=== PATIENT | male | born 1955 | race Caucasian/White ===

== ENCOUNTER 2017-06-27 20:24 | Observation (INO) | payer OTHER, SELFPAY ==
[~2017-06-27] VITALS: Ht 162.6 cm; Wt 66.5 kg
[~2017-06-27 20:24] MED LIST: ACET325 PO; ALBU3IS INH; ALBU90I INH; ALBU90OI INH; ALBUIS INH; ALLO100; ALLO100 PO; AMIO200 PO; ARIP20 PO; ASCO500 PO; ASPI325 PO; ASPI81CH PO; ASPI81EC PO; ATOR10 PO; ATOR40TA PO; Antivert12.5 MG PO; B-1100 MG PO; BENZ1 PO; BENZ2 PO; BENZATROPINE PO; BUSP10 PO; BUSP15 PO; CEPH500 PO; CLON.5 PO; CLON1 PO; CLON2 PO; CLOP75 PO; CLOT10 SS; COLCRYS0.6 MG PO; CYCL10 PO; Cartia Xt120 MG PO; DEPO TESTOSTERONE; DIGO.125 PO; DILT120 PO; DIPH50 PO; DIVA500EC PO; DIVA500ER; DIVA500ER PO; DOCU100 PO; DOXE50 PO; DOXY100 PO; DULERA 100 MCG/13 GM INH; Depo-Testos200 MG/ML IM; Desyrel50 MG PO; ERGO50000 PO; ESCI20 PO; FAMO10 PO; FENO54 PO; FLUSAL2505 IH; FLUSAL2505 INH; FOLI1 PO; FURO40 PO; FURO80 PO; Furosemide40 MG PO; GUAI600T33 PO; HALO5 PO; HYDACE10 PO; HYDACE5 PO; HYDCHL12.5 PO; HYDPAM50 PO; HYDR1TAB94 PO; HYDROCHLOROTHIAZIDE; HYDROCODON-ACE1 EAC3 PO; Haldol 5 mg Tab5 MG PO; IBUP600 PO; IBUP800 PO; ISOMON60ER PO; Isosorbide Mono30 MG PO; LANOXIN250 MC1 PO; LEVO750 PO; LEVSOD150 PO; LEVSOD175 PO; LIDO4TS50 TOP; LIDO5TP; LIDO5TP TOP; LISI20 PO; LISI5 PO; LORA.5 PO; LORA2 PO; MECL12.5 PO; MECL25 PO; METO50 PO; METO50ER PO; MULVITB PO; MUPI1NAS; NAPR375 PO; NAPR500 PO; NITR.4SL SL; NITR.6SL SL; NITRSPRAY SL; OMEP20ER PO; OXYACE5T PO; OXYC10TA19 PO; Omeprazole20 M1 PO; PANT40 PO; POTA10T PO; POTCHL20ER PO; PRAV20 PO; PRAV40 PO; PRED10 PO; PRED1SU OD; PRED1SU OU; PRED20 PO; PROM25 PO; Percocet 5-3251 EACH PO; Prilosec20 MG PO; Prinivil10 MG PO; RANI150 PO; RISP2 PO; SENN187 PO; SILSUL1TC TOP; SULTRIDS PO; SULTRISS PO; Synthroid/Lev0.15 MG PO; TAMS.4ER PO; TESTTP IM; TESTTP TOP; TIOT18 INH; TRAM50 PO; TRAZ100 PO; TRAZ150T57 PO; TRAZ50 PO; VENTOLIN; VICODIN 5-3001 EACH PO; Vitamin B-1250 MCG PO; Vitamin B-150 MG PO; XARELTO20 MG PO; ZIPR20 PO; ZIPR40 PO; ZIPR80 PO; ZOLP10 PO; Zithromax250 MG PO; [UNRECOGNIZED DRUG - OTHER]; [UNRECOGNIZED DRUG - OTHER] IM; [UNRECOGNIZED DRUG - REMARK]
[2017-06-27 21:57] LABS: BASOPHILS ABSOLUTE AUTO 0.03 K/mm3 (0.00-0.23); BASOPHILS PERCENT AUTO 0 % (0-2); EOSINOPHILS ABSOLUTE AUTO 0.11 K/mm3 (0.00-0.68); EOSINOPHILS PERCENT AUTO 1 % (0-6); Hematocrit 41.2 % (37.0-53.0); Hemoglobin 14.1 g/dL (13.5-17.5); IMMATURE GRAN ABSOLUTE AUTO 0.03 K/mm3 (0.00-0.10); IMMATURE GRAN PERCENT AUTO 0 % (0-1); LYMPHOCYTES ABSOLUTE AUTO 1.82 K/mm3 (0.84-5.20); LYMPHOCYTES PERCENT AUTO 22 % (21-46); MONOCYTES ABSOLUTE AUTO 0.82 K/mm3 (0.16-1.47); MONOCYTES PERCENT AUTO 10 % (4-13); Mean Corpuscular HGB 32.9 pg (26.0-34.0); Mean Corpuscular HGB Conc 34.2 g/dL (31.5-36.5); Mean Corpuscular Volume 96 fL (80-100); Mean Platelet Volume 9.5 fL (9.1-12.4); NEUTROPHILS ABSOLUTE AUTO 5.56 K/mm3 (1.96-9.15); NEUTROPHILS PERCENT AUTO 66 % (41-73); Platelet Count 202 K/mm3 (150-400); RDW Coefficient Variation 12.3 % (11.7-14.2); RDW Standard Deviation 43.5 fL (35.1-46.3); Red Blood Cell Count 4.29 M/mm3 (4.30-5.90); White Blood Cell Count 8.37 K/mm3 (4.00-11.30)
[2017-06-27 22:20] LABS: Alanine Aminotransfer (ALT/SGP 32 U/L (12-78); Albumin/Globulin Ratio 0.8 (0.8-1.8); Alk Phos 96 U/L (50-136); Anion Gap 5 mmol/L (6-16); Aspartate Aminotrans (AST/SGOT 43 U/L (12-37); Bilirubin, Total 0.2 mg/dL (0.1-1.0); Blood Urea Nitrogen 9 mg/dL (8-24); CO2, Blood 29 mmol/L (21-32); Calcium, Blood 8.8 mg/dL (8.5-10.1); Chloride, Blood 105 mmol/L (98-108); Globulin, Blood 3.6 g/dL (2.2-4.0); Glomerular Filtration Rate >60 (60-); Glucose, Blood 85 mg/dL (70-99); Potassium, Blood 3.6 mmol/L (3.5-5.5); Sodium, Blood 139 mmol/L (136-145); Total Protein, Blood 6.6 g/dL (6.4-8.2); Troponin I 0.017 ng/mL (0.000-0.040)
[2017-06-27 22:24] LABS: Thyroid Stimulating Hormone 0.579 uIU/mL (0.360-4.800)
[2017-06-27 23:40] LABS: Valproic Acid 61.8 ug/mL (50.0-100.0)
[2017-06-27 23:48] LABS: Digoxin (Lanoxin) <0.06 ug/mL (0.80-2.00)
[2017-06-30] MEDS ORDERED: DOCU100 PO (13:39)
[2017-06-30] MEDS ORDERED: MECL12.5 PO (13:39)
[2018-01-15] MEDS ORDERED: TRAZ50 (13:33)
[2018-01-15] MEDS ORDERED: LORA.5 (13:33)
[2018-01-20] MEDS ORDERED: LORA.5 PO (09:04)
[2018-01-20] MEDS ORDERED: TRAZ50 PO (09:04)
[2018-01-20] MEDS ORDERED: OXYB5ER PO (09:07)
[2018-01-20] MEDS ORDERED: DOXE25 PO (09:08)
[2018-01-20] MEDS ORDERED: LEVSOD100 PO (09:09)
[2018-02-24] MEDS ORDERED: LEVFLO500 PO (12:01)
[2018-02-24] MEDS ORDERED: PRED20 PO (12:02)
[2018-02-25] MEDS ORDERED: ACET325 PO (09:47)
[2018-02-25] MEDS ORDERED: METO25 PO (09:48)
[2018-02-25] MEDS ORDERED: ATOR40TA PO (09:48)
[2018-02-25] MEDS ORDERED: ASPI81CH PO (09:48)
[2018-02-25] MEDS ORDERED: OXYB5ER PO (09:49)
== END 2017-06-30 14:57 ==
LOC: ER 20:24 → MEDS 20:25 → ER 23:32 → MEDS 06-28 00:02
PROVIDERS: Emergency Medicine
DX: R29.6 Repeated falls (principal); G40.909 Epilepsy, unspecified, not intractable, without status epilepticus; F25.9 Schizoaffective disorder, unspecified; E03.9 Hypothyroidism, unspecified; I25.10 Atherosclerotic heart disease of native coronary artery without angina pectoris; J44.9 Chronic obstructive pulmonary disease, unspecified; H81.10 Benign paroxysmal vertigo, unspecified ear; I48.2 Chronic atrial fibrillation; M10.9 Gout, unspecified; F64.9 Gender identity disorder, unspecified; Z87.820 Personal history of traumatic brain injury; Z98.890 Other specified postprocedural states; Z88.5 Allergy status to narcotic agent; Z88.8 Allergy status to other drugs, medicaments and biological substances
CPT/HCPCS: 36415; 70450; 71046; 80053; 80162; 80164; 83880; 84443; 84484; 85025; 93005; 93010; 96360; 96361; 97116; 97161; 97165; 97535; 99285; G0378; G8978; G8979; G8987; G8988; J7030

== ENCOUNTER 2017-10-09 14:41 | Emergency (ER) | payer OTHER, SELFPAY ==
[~2017-10-09] VITALS: Ht 160 cm; Wt 61.2 kg
[2017-10-09 15:53] LABS: BASOPHILS ABSOLUTE AUTO 0.01 K/mm3 (0.00-0.23); BASOPHILS PERCENT AUTO 0 % (0-2); EOSINOPHILS ABSOLUTE AUTO 0.03 K/mm3 (0.00-0.68); EOSINOPHILS PERCENT AUTO 1 % (0-6); Hematocrit 40.8 % (37.0-53.0); Hemoglobin 13.7 g/dL (13.5-17.5); IMMATURE GRAN ABSOLUTE AUTO 0.01 K/mm3 (0.00-0.10); IMMATURE GRAN PERCENT AUTO 0 % (0-1); LYMPHOCYTES ABSOLUTE AUTO 0.94 K/mm3 (0.84-5.20); LYMPHOCYTES PERCENT AUTO 17 % (21-46); MONOCYTES PERCENT AUTO 11 % (4-13); Mean Corpuscular HGB 32.6 pg (26.0-34.0); Mean Corpuscular HGB Conc 33.6 g/dL (31.5-36.5); Mean Corpuscular Volume 97 fL (80-100); Mean Platelet Volume 9.5 fL (9.1-12.4); NEUTROPHILS ABSOLUTE AUTO 4.07 K/mm3 (1.96-9.15); NEUTROPHILS PERCENT AUTO 72 % (41-73); Platelet Count 193 K/mm3 (150-400); RDW Coefficient Variation 13.1 % (11.7-14.2); RDW Standard Deviation 46.7 fL (35.1-46.3); White Blood Cell Count 5.66 K/mm3 (4.00-11.30)
[2017-10-09 16:12] LABS: Alanine Aminotransfer (ALT/SGP 26 U/L (12-78); Albumin/Globulin Ratio 0.8 (0.8-1.8); Alk Phos 96 U/L (50-136); Anion Gap 8 mmol/L (6-16); Aspartate Aminotrans (AST/SGOT 45 U/L (12-37); Bilirubin, Total 0.4 mg/dL (0.1-1.0); Blood Urea Nitrogen 13 mg/dL (8-24); Bun/Creatinine Ratio 14.4 (12.0-20.0); CO2, Blood 27 mmol/L (21-32); Calcium, Blood 8.8 mg/dL (8.5-10.1); Chloride, Blood 107 mmol/L (98-108); Globulin, Blood 3.6 g/dL (2.2-4.0); Glomerular Filtration Rate >60 (60-); Glucose, Blood 76 mg/dL (70-99); Potassium, Blood 3.6 mmol/L (3.5-5.5); Sodium, Blood 142 mmol/L (136-145); Total Protein, Blood 6.6 g/dL (6.4-8.2)
[2017-10-09 17:00] LABS: Troponin I <0.015 ng/mL (0.000-0.040)
== END 2017-10-09 18:04 | disposition home or self-care (01) ==
LOC: ER 14:41
PROVIDERS: Emergency Medicine
DX: S00.83XA Contusion of other part of head, initial encounter (principal); R29.6 Repeated falls; W01.198A Fall on same level from slipping, tripping and stumbling with subsequent striking against other object, initial encounter; Z88.8 Allergy status to other drugs, medicaments and biological substances; Z88.5 Allergy status to narcotic agent; Z88.0 Allergy status to penicillin; Z88.1 Allergy status to other antibiotic agents; Z79.899 Other long term (current) drug therapy; I50.9 Heart failure, unspecified; I48.91 Unspecified atrial fibrillation; F17.200 Nicotine dependence, unspecified, uncomplicated
CPT/HCPCS: 36415; 70450; 71046; 80053; 84484; 85025; 93005; 93010; 99284

== ENCOUNTER 2017-10-09 18:42 | Observation (INO) | payer OTHER, SELFPAY ==
[~2017-10-09] VITALS: Ht 162.6 cm; Wt 67.0 kg
[2017-10-09 23:28] LABS: Digoxin (Lanoxin) <0.06 ug/mL (0.80-2.00)
[2017-10-10 18:52] LABS: Source, Urine Clean Catch
[2017-10-10 18:56] LABS: Bilirubin, Urine Neg (Neg); Blood, Urine 1+ (Neg); Glucose Qualitative, Urine Neg (Neg); Ketones, Urine Neg (Neg); Leukocyte Esterase, Urine Neg (Neg); Nitrite, Urine Neg (Neg); Protein, Urine Neg (Neg); Specific Gravity, Urine 1.015 (1.003-1.022); Urobilinogen, Urine 1+ (Normal); pH, Urine 6.5 (5.0-8.0)
[2017-10-10 19:20] LABS: Appearance, Urine Clear (Clear); Color, Urine Yellow (P-Yellow); Red Blood Cells, Urine Not Seen /hpf (0-2); Squamous Epithelial Cells Not Seen /hpf (Few); White Blood Cells, Urine Not Seen /hpf (0-5)
[2017-10-10 19:21] LABS: Bacteria Not Seen /hpf
[2017-10-10 19:32] LABS: U Amphetamine Screen Not Detected; U Barbituate Screen Not Detected; U Benzodiazapine Screen DETECTED; U Buprenorphine Screen Not Detected; U Cannabinoids Screen DETECTED; U Cocaine Screen Not Detected; U Methadone Screen Not Detected; U Methamphetamine Screen Not Detected; U Opiates Screen Not Detected; U Oxycodone Screen Not Detected; U Phencyclidine Screen Not Detected; U Propoxyphene Screen Not Detected
== END 2017-10-11 13:36 | disposition home or self-care (01) ==
LOC: ER 18:42 → MEDS 18:43 → ENPENDDIS 10-11 09:38 → MEDS 10-11 13:36
PROVIDERS: Emergency Medicine; Internal Medicine
DX: G21.19 Other drug induced secondary parkinsonism (principal); G40.909 Epilepsy, unspecified, not intractable, without status epilepticus; I48.91 Unspecified atrial fibrillation; E03.9 Hypothyroidism, unspecified; F25.9 Schizoaffective disorder, unspecified; I25.10 Atherosclerotic heart disease of native coronary artery without angina pectoris; J44.9 Chronic obstructive pulmonary disease, unspecified; Z88.0 Allergy status to penicillin; Z88.1 Allergy status to other antibiotic agents; Z88.5 Allergy status to narcotic agent; Z88.8 Allergy status to other drugs, medicaments and biological substances; Z79.899 Other long term (current) drug therapy; Z99.81 Dependence on supplemental oxygen
CPT/HCPCS: 36415; 70496; 70498; 80162; 81001; 87081; 97110; 97116; 97162; 97166; 97530; 97535; 99285; G0378; G8978; G8979; G8987; G8988; J7030; Q9967

== ENCOUNTER 2017-11-09 21:55 | Emergency (ER) | payer OTHER, SELFPAY ==
[~2017-11-09] VITALS: Ht 162.6 cm; Wt 63.5 kg
== END 2017-11-09 23:30 | disposition home or self-care (01) ==
LOC: ER 21:55
DX: S01.81XA Laceration without foreign body of other part of head, initial encounter (principal); Z88.6 Allergy status to analgesic agent; Z88.5 Allergy status to narcotic agent; Z88.1 Allergy status to other antibiotic agents; Z88.0 Allergy status to penicillin; Z88.8 Allergy status to other drugs, medicaments and biological substances; F17.200 Nicotine dependence, unspecified, uncomplicated; Z23 Encounter for immunization; W18.30XA Fall on same level, unspecified, initial encounter
CPT/HCPCS: 12011; 90471; 90714; 99282

== ENCOUNTER 2017-11-12 04:28 | Emergency (ER) | payer OTHER, SELFPAY ==
[~2017-11-12] VITALS: Ht 162.6 cm; Wt 65.8 kg
== END 2017-11-12 05:46 | disposition home or self-care (01) ==
LOC: ER 04:28
DX: S01.81XA Laceration without foreign body of other part of head, initial encounter (principal); I50.9 Heart failure, unspecified; I48.91 Unspecified atrial fibrillation; Z88.6 Allergy status to analgesic agent; Z88.5 Allergy status to narcotic agent; Z88.1 Allergy status to other antibiotic agents; Z88.0 Allergy status to penicillin; Z88.8 Allergy status to other drugs, medicaments and biological substances; Z79.899 Other long term (current) drug therapy; W01.0XXA Fall on same level from slipping, tripping and stumbling without subsequent striking against object, initial encounter
CPT/HCPCS: 12015; 70450; 99284-25

== ENCOUNTER 2017-11-19 09:46 | Emergency (ER) | payer OTHER, SELFPAY ==
[~2017-11-19] VITALS: Ht 162.6 cm; Wt 63.5 kg
== END 2017-11-19 11:54 | disposition home or self-care (01) ==
LOC: ER 09:46
DX: S62.325A Displaced fracture of shaft of fourth metacarpal bone, left hand, initial encounter for closed fracture (principal); S01.81XD Laceration without foreign body of other part of head, subsequent encounter; I50.9 Heart failure, unspecified; J44.9 Chronic obstructive pulmonary disease, unspecified; I48.91 Unspecified atrial fibrillation; G40.909 Epilepsy, unspecified, not intractable, without status epilepticus; F17.200 Nicotine dependence, unspecified, uncomplicated; Z88.6 Allergy status to analgesic agent; Z88.5 Allergy status to narcotic agent; Z88.1 Allergy status to other antibiotic agents; Z88.0 Allergy status to penicillin; Z88.8 Allergy status to other drugs, medicaments and biological substances; Z79.899 Other long term (current) drug therapy; W18.30XA Fall on same level, unspecified, initial encounter
CPT/HCPCS: 29125; 73130; 99283-25

== ENCOUNTER 2017-12-07 14:52 | Emergency (ER) | payer OTHER, SELFPAY ==
[~2017-12-07] VITALS: Ht 162.6 cm; Wt 63.5 kg
== END 2017-12-07 18:10 | disposition home or self-care (01) ==
LOC: ER 14:52
DX: S01.412A Laceration without foreign body of left cheek and temporomandibular area, initial encounter (principal); I50.9 Heart failure, unspecified; I48.91 Unspecified atrial fibrillation; F17.210 Nicotine dependence, cigarettes, uncomplicated; Z88.6 Allergy status to analgesic agent; Z88.5 Allergy status to narcotic agent; Z88.1 Allergy status to other antibiotic agents; Z88.0 Allergy status to penicillin; Z88.8 Allergy status to other drugs, medicaments and biological substances; Z79.899 Other long term (current) drug therapy; W06.XXXA Fall from bed, initial encounter
CPT/HCPCS: 12013; 36415; 71046; 93005; 93010; 99284-25

== ENCOUNTER 2018-02-11 17:06 | Emergency (ER) | payer OTHER ==
[~2018-02-11] VITALS: Ht 162.6 cm; Wt 62.6 kg
[~2018-02-11 17:06] MED LIST changes: +DOXE25 PO; +LEVSOD100 PO; +LORA.5; +OXYB5ER PO; +TRAZ50
[2018-02-11 17:44] LABS: BASOPHILS ABSOLUTE AUTO 0.03 K/mm3 (0.00-0.23); BASOPHILS PERCENT AUTO 0 % (0-2); EOSINOPHILS ABSOLUTE AUTO 0.14 K/mm3 (0.00-0.68); EOSINOPHILS PERCENT AUTO 2 % (0-6); Hematocrit 39.3 % (37.0-53.0); Hemoglobin 12.7 g/dL (13.5-17.5); IMMATURE GRAN ABSOLUTE AUTO 0.02 K/mm3 (0.00-0.10); IMMATURE GRAN PERCENT AUTO 0 % (0-1); LYMPHOCYTES ABSOLUTE AUTO 1.12 K/mm3 (0.84-5.20); LYMPHOCYTES PERCENT AUTO 14 % (21-46); MONOCYTES ABSOLUTE AUTO 0.78 K/mm3 (0.16-1.47); MONOCYTES PERCENT AUTO 10 % (4-13); Mean Corpuscular HGB 33.6 pg (26.0-34.0); Mean Corpuscular HGB Conc 32.3 g/dL (31.5-36.5); Mean Corpuscular Volume 104 fL (80-100); Mean Platelet Volume 9.3 fL (9.1-12.4); NEUTROPHILS ABSOLUTE AUTO 5.67 K/mm3 (1.96-9.15); NEUTROPHILS PERCENT AUTO 73 % (41-73); Platelet Count 202 K/mm3 (150-400); RDW Coefficient Variation 12.6 % (11.7-14.2); RDW Standard Deviation 48.6 fL (35.1-46.3); Red Blood Cell Count 3.78 M/mm3 (4.30-5.90); White Blood Cell Count 7.76 K/mm3 (4.00-11.30)
[2018-02-11 18:10] LABS: Anion Gap 8 mmol/L (6-16); Blood Urea Nitrogen 15 mg/dL (8-24); Bun/Creatinine Ratio 17.5 (12.0-20.0); CO2, Blood 26 mmol/L (21-32); Calcium, Blood 8.4 mg/dL (8.5-10.1); Chloride, Blood 105 mmol/L (98-108); Creatinine, Blood 0.86 mg/dL (0.60-1.20); Glomerular Filtration Rate >60 (60-); Glucose, Blood 84 mg/dL (70-99); Potassium, Blood 4.1 mmol/L (3.5-5.5); Sodium, Blood 139 mmol/L (136-145)
== END 2018-02-11 21:20 | disposition home or self-care (01) ==
LOC: ER 17:06
PROVIDERS: Emergency Medicine
DX: S02.2XXA Fracture of nasal bones, initial encounter for closed fracture (principal); S09.90XA Unspecified injury of head, initial encounter; I50.9 Heart failure, unspecified; I48.91 Unspecified atrial fibrillation; F17.210 Nicotine dependence, cigarettes, uncomplicated; Z88.6 Allergy status to analgesic agent; Z88.5 Allergy status to narcotic agent; Z88.1 Allergy status to other antibiotic agents; Z88.0 Allergy status to penicillin; Z88.8 Allergy status to other drugs, medicaments and biological substances; Z79.899 Other long term (current) drug therapy; W19.XXXA Unspecified fall, initial encounter
CPT/HCPCS: 70486; 70491; 80048; 85025; 96360; 99285-25; J7030; Q9967